=== PATIENT | male | born 1945 | race Caucasian/White ===

== ENCOUNTER → 2017-06-23 | Outpatient (CLI) | payer OTHER ==
[~2017-06-23] MED LIST: ACETAMINOPHEN-1 EAC1 PO; PRILOSEC 10MG C10 MG PO; ZOFRAN4 MG PO
== END ==
LOC: M.LAB 12:33
DX: K59.00 Constipation, unspecified (principal)

== ENCOUNTER → 2018-06-02 | Outpatient (CLI) | payer OTHER | LOC: M.RAD 11:51 | DX: R07.89 Other chest pain (principal) ==

== ENCOUNTER → 2019-01-27 | Outpatient (CLI) | payer OTHER | LOC: M.RAD 16:24 | DX: M25.422 Effusion, left elbow (principal); M77.9 Enthesopathy, unspecified; R07.89 Other chest pain ==

== ENCOUNTER → 2019-05-19 | Outpatient (CLI) | payer OTHER | LOC: M.MRI 12:29 | DX: R90.82 White matter disease, unspecified (principal); G31.9 Degenerative disease of nervous system, unspecified; F02.81 Dementia in other diseases classified elsewhere, unspecified severity, with behavioral disturbance ==

== ENCOUNTER → 2019-11-16 | Outpatient (CLI) | payer OTHER | LOC: M.RAD 15:45 | DX: S22.31XA Fracture of one rib, right side, initial encounter for closed fracture (principal); G25.89 Other specified extrapyramidal and movement disorders; X58.XXXA Exposure to other specified factors, initial encounter; Y93.89 Activity, other specified; Y92.89 Other specified places as the place of occurrence of the external cause; Y99.8 Other external cause status ==

== ENCOUNTER → 2020-06-29 | Outpatient (CLI) | payer OTHER | LOC: M.RAD 16:07 | PROVIDERS: ATTEND Internal Medicine | DX: M70.22 Olecranon bursitis, left elbow (principal); M79.89 Other specified soft tissue disorders ==

== ENCOUNTER → 2020-08-31 | Outpatient (CLI) | payer OTHER | LOC: M.MRI 11:17 | PROVIDERS: ATTEND Orthopaedic Surgery | DX: S53.441A Ulnar collateral ligament sprain of right elbow, initial encounter (principal); M70.22 Olecranon bursitis, left elbow; M79.89 Other specified soft tissue disorders; X58.XXXA Exposure to other specified factors, initial encounter; Y93.89 Activity, other specified; Y92.89 Other specified places as the place of occurrence of the external cause; Y99.8 Other external cause status ==

== ENCOUNTER → 2020-10-03 | Outpatient (CLI) | payer OTHER | LOC: M.LAB 08:01 | PROVIDERS: ATTEND Orthopaedic Surgery | DX: Z01.812 Encounter for preprocedural laboratory examination (principal); Z20.822 Contact with and (suspected) exposure to COVID-19 ==

== ENCOUNTER → 2020-11-19 | Outpatient (CLI) | payer OTHER | LOC: M.RAD 14:49 | PROVIDERS: ATTEND Internal Medicine | DX: M65.321 Trigger finger, right index finger (principal); M79.641 Pain in right hand; M79.642 Pain in left hand ==

== ENCOUNTER → 2021-01-21 | Outpatient (CLI) | payer OTHER | LOC: M.RAD 16:52 | PROVIDERS: ATTEND Internal Medicine | DX: M17.11 Unilateral primary osteoarthritis, right knee (principal); M25.561 Pain in right knee; M25.461 Effusion, right knee ==

== ENCOUNTER → 2021-02-28 | Outpatient (CLI) | payer OTHER | LOC: M.RAD 09:30 | PROVIDERS: ATTEND Internal Medicine | DX: R07.9 Chest pain, unspecified (principal) ==

== ENCOUNTER → 2021-03-01 | Outpatient (CLI) | payer OTHER | LOC: M.ULTRA 02-28 14:55 → M.LAB 09:45 → M.ULTRA 09:45 → M.CT 11:00 | PROVIDERS: ATTEND Internal Medicine | DX: R79.89 Other specified abnormal findings of blood chemistry (principal); M79.604 Pain in right leg; M79.606 Pain in leg, unspecified; R06.02 Shortness of breath ==

== ENCOUNTER → 2021-03-27 | Outpatient (CLI) | payer OTHER ==
--- NOTE | 2021-03-27 16:37 | EXE ---
[place] [address] STRESS ECHOCARDIOGRAM Name: LYDIA VARGAS Room: [facility]#: [id number] Admission: 03/27/21 Attend Phys: Ian Tran, Discharge: Date of : 47 Date of Service: 03/27/21 1636 Report #: [id number] THIS REPORT FOR: cc: Chuck Nuno MD, Meng MD Blick, David R. MD [facility] ~ APPROVED REPORT Study performed: 03/27/2021 15:18:39 Exam: Stress Echocardiogram Indication: Chest pain Patient Location: Out-Patient Stress Nurse: Amparo Miller RN Supervising Physician: Lydia Quiñonez MD Ht: 5 ft 10 in HR: 65 bpm BP: 125/80 mmHg Medical History Cardiac Risk Factors: Tobacco History (Former), Age Procedure The patient underwent an Exercise Stress Test using the Pierre Protocol. Blood pressure, heart rate, and EKG were monitored. An Echocardiogram was performed by bakery technician in four stages in quad fashion. At peak stress, four selected images were obtained and placed side by side with resting images for comparison. Stress Test Details Stress Test: Exercise stress testing was performed using a Pierre protocol. HR Resting HR: 65 bpm Max Heart Rate (APMHR): 146 bpm Max HR Achieved: 130 bpm Target HR (85% APMHR): 124 bpm % of APMHR: 89 Recovery HR: 78 bpm HR response to stress: Normal HR response to stress BP Resting BP: 125/80 mmHg Max BP: 179/71 mmHg Recovery BP: 144/80 mmHg BP response to stress: [place] [address] STRESS ECHOCARDIOGRAM Name: LYDIA VARGAS Room: [facility]#: [id number] Admission: 03/27/21 Attend Phys: Ian Tran, Discharge: Date of : 47 Date of Service: 03/27/21 1636 Report #: [id number] stress. ECG Resting ECG: Sinus Rhythm Stress ECG: Sinus Rhythm, nonspecific ST-T abnormalities ST Change: Upsloping ST depression Maximum ST Deviation: 0.5 mm Arrhythmia: VPC's Recovery ECG: Sinus Rhythm Recovery ST Change: None Recovery ST Deviation: 0 mm Recovery Arrhythmia: None Clinical Reason for Termination: Maximal effort, Completed protocol Exercise duration: 6 min 03 sec Highest Stage Achieved: Stage 2: 2.5 mph at 12% grade. Exercise capacity: 7.05 METs Pre-Stress Echo The resting Echocardiogram showed normal left ventricular contractility with an estimated Ejection Fraction of about 60-65%. Post-Stress Echo The stress Echocardiogram showed normal left ventricular contractility with an estimated Ejection Fraction of about >70%. Compared to rest, there were no stress-induced wall motion abnormalities. Conclusion Clinical Response: Non-ischemic Exercise Capacity: Average Stress ECG Response: Equivocal Stress Echo Images: Non-ischemic low risk stress echo for predicting future cardiac events. Other Information Study Quality: Excellent <Conclusion> low risk stress echo for predicting future cardiac events. <ELECTRONICALLY SIGNED> By: Lydia Quiñonez MD, FACC 03/27/21 1636 [id number] Lydia Quiñonez MD, FACC /INF
== END ==
LOC: M.CRD 14:29
PROVIDERS: ATTEND Internal Medicine Cardiovascular Disease
DX: R07.2 Precordial pain (principal)

== ENCOUNTER → 2021-05-24 | Outpatient (CLI) | payer OTHER | LOC: M.RAD 12:04 | PROVIDERS: ATTEND Internal Medicine | DX: M50.323 Other cervical disc degeneration at C6-C7 level (principal); M41.84 Other forms of scoliosis, thoracic region ==